=== PATIENT | male | born 1995 | race Caucasian/White ===

== ENCOUNTER 2017-03-09 22:06 | Emergency (ER) | payer OTHER ==
[~2017-03-09] VITALS: Ht 162.6 cm; Wt 138.3 kg
[2017-03-09 22:19] VITALS: BP 129/88
[2017-03-09] MEDS ORDERED: IBUPROFEN 600 MG TABLET. PO ONE (22:30)
[2017-03-09] MEDS ORDERED: OXYM30SP NS (22:31)
--- NOTE | 2017-03-09 22:31 | PHYS DOC ---
Past Medical History Past Medical History: No Pertinent History Past Surgical History: No Surgical History Alcohol Use: None Drug Use: None Adult General Chief Complaint Chief Complaint: NOSEBLEED HPI HPI Patient is a 21 year old male who presents with nosebleed. The patient states he had bleeding from the right nare that resolved prior to arrival. He has several day history of sinus congestion & dull throbbing headache. He has not tried any medications at home. States he often has 1-2 nosebleeds per month. Denies use of blood thinners, no known past medical history. Review of Systems Review of Systems Constitutional: Denies fever or chills Eyes: Denies change in visual acuity HENT: Reports nasal congestion, denies sore throat, reports epistaxis Respiratory: Denies cough or shortness of breath Cardiovascular: Denies chest pain GI: Denies abdominal pain, nausea, vomiting Musculoskeletal: Denies back pain or joint pain Integument: Denies rash Neurologic: Reports headache, denies focal weakness or sensory changes Current Medications Current Medications Current Medications Medications (Trade) Dose Ordered Sig/Erlinda Start Time Stop Time Status Last Admin Dose Admin Ibuprofen (Motrin) 600 mg 1X ONCE 03/09/17 22:30 03/09/17 22:31 DC 03/09/17 22:30 600 MG Allergies Allergies Allergies Coded Allergies Type Severity Reaction Last Updated Verified No Known Drug Allergies 03/09/17 No Physical Exam Physical Exam Constitutional: obese, no acute distress, non-toxic appearance. HENT: Normocephalic, atraumatic, bilateral external ears normal, oropharynx moist, nose normal. dried blood at right nare, no active bleeding, no septal hematoma. no focal sinus tenderness. Eyes: PERRLA, EOMI, conjunctiva normal, no discharge. Neck: supple, no stridor. no meningismus Cardiovascular: RRR, no murmurs, no edema. Lungs & Thorax: LCTAB, no wheezing, no respiratory distress. Abdomen: soft, nontender, nondistended. Skin: Warm, dry, no erythema, no rash. Extremities: No tenderness, no edema. Neurologic: Alert and oriented X 3, CN2-12 grossly intact, symmetric strength/ sensation to UE & LE, no focal deficits noted. Psychologic: Affect normal, judgement normal, mood normal. Current Patient Data Vital Signs Vital Signs Date Time Temp Pulse Resp B/P (MAP) Pulse Ox O2 Delivery O2 Flow Rate FiO2 03/09/17 22:19 98.6 106 16 98 Room Air 98.6 EKG EKG [] Radiology/Procedures Radiology/Procedures [] Course & Med Decision Making Course & Med Decision Making Pertinent Labs and Imaging studies reviewed. (See chart for details) The patient presents with epistaxis now resolved. Counseled regarding prevention (no nose picking, apply neosporin to nares, use humidifier) & treatment (blow nose, pressure x 15 minutes, afrin PRN). Use claritin or zyrtec for possible seasonal allergies. Follow up with PCP, possible ENT referral at that time. Come back for epistaxis not treated by above measures. Discharged home in stable condition. [] Dragon Disclaimer Dragon Disclaimer This electronic medical record was generated, in whole or in part, using a voice recognition dictation system. Departure Departure Impression: Primary Impression: Epistaxis Disposition: HOME, SELF-CARE Condition: STABLE Referrals: UNKNOWN PCP NAME (PCP) Patient Instructions: Nosebleed, [id number] Additional Instructions: You were seen in the emergency department today for nosebleed which had stopped. To prevent nosebleeds in the future, do not pick your nose and consider gently applying neosporin ointment inside her nose with a Q-tip. During the dry winter months sleep with a humidifier. If you do experience nosebleed, apply pressure for 15 minutes as demonstrated here after blowing out clots. Apply Afrin nasal spray as needed. You may also take Tylenol or ibuprofen for pain or fever and use Claritin or Zyrtec to reduce sinus congestion. Follow-up with primary care physician in about one week. You may also benefit from seeing an ear, nose, and throat physician. Scripts Oxymetazoline Hcl (AFRIN) 30 Ml [place] 2 SPRAYS NS 1X Y for nosebleed, #1 UNIT Prov: FELISA EAST MD 03/09/17 FELISA EAST MD Mar 09, 2017 22:31
== END 2017-03-09 22:43 | disposition home or self-care (01) ==
LOC: ER 22:06
DX: R04.0 Epistaxis (principal); R51 Headache; R09.81 Nasal congestion; E66.9 Obesity, unspecified
CPT/HCPCS: 99283

== ENCOUNTER 2017-08-05 08:02 | Emergency (ER) | payer OTHER ==
[~2017-08-05] VITALS: Ht 180.3 cm; Wt 133.8 kg
[~2017-08-05 08:02] MED LIST: OXYM30SP NS
[2017-08-05 08:11] VITALS: BP 147/75
--- NOTE | 2017-08-05 08:21 | PHYS DOC ---
Past Medical History Past Medical History: No Pertinent History Past Surgical History: No Surgical History Alcohol Use: None Drug Use: None Adult General Chief Complaint Chief Complaint: ABDOMINAL PAIN HPI HPI Patient is a 21 year old male with no significant medical history who presents with mild midepigastric to left upper quadrant abdominal pain with nausea vomiting and diarrhea that began 4 days ago. Patient denies any fever or hematemesis or melena. Review of Systems Review of Systems Constitutional: Denies fever or chills [] Eyes: Denies change in visual acuity, redness, or eye pain [] HENT: Denies nasal congestion or sore throat [] Respiratory: Denies cough or shortness of breath [] Cardiovascular: No additional information not addressed in HPI [] GI: Epigastric and left upper abdominal pain, denies nausea, vomiting, bloody stools or diarrhea [] : Denies dysuria or hematuria [] Musculoskeletal: Denies back pain or joint pain [] Integument: Denies rash or skin lesions [] Neurologic: Denies headache, focal weakness or sensory changes [] All other systems were reviewed and found to be within normal limits, except as documented in this note. Current Medications Current Medications Current Medications Medications (Trade) Dose Ordered Sig/Erlinda Start Time Stop Time Status Last Admin Dose Admin Famotidine (Pepcid Vial) 20 mg 1X ONCE 08/05/17 08:30 08/05/17 08:31 DC 08/05/17 08:35 20 MG Ketorolac Tromethamine (Toradol) 30 mg 1X ONCE 08/05/17 08:30 08/05/17 08:31 DC 08/05/17 08:35 30 MG Ondansetron HCl (Zofran) 4 mg 1X ONCE 08/05/17 08:30 08/05/17 08:31 DC 08/05/17 08:35 4 MG Sodium Chloride 1,000 ml @ 1,000 mls/hr 1X ONCE 08/05/17 08:30 08/05/17 09:29 DC 08/05/17 08:35 1,000 MLS/HR Allergies Allergies Allergies Coded Allergies Type Severity Reaction Last Updated Verified No Known Drug Allergies 03/09/17 No Physical Exam Physical Exam Constitutional: Well developed, well nourished, no acute distress, non-toxic appearance. [] HENT: Normocephalic, atraumatic, bilateral external ears normal, oropharynx moist, no oral exudates, nose normal. [] Eyes: PERRLA, EOMI, conjunctiva normal, no discharge. [] Neck: Normal range of motion, no tenderness, supple, no stridor. [] Cardiovascular:Heart rate regular rhythm, no murmur [] Lungs & Thorax: Bilateral breath sounds clear to auscultation [] Abdomen: Bowel sounds normal, soft, no tenderness, no masses, no pulsatile masses. [] Skin: Warm, dry, no erythema, no rash. [] Back: No tenderness, no CVA tenderness. [] Extremities: No tenderness, no cyanosis, no clubbing, ROM intact, no edema. [] Neurologic: Alert and oriented X 3, normal motor function, normal sensory function, no focal deficits noted. [] Psychologic: Affect normal, judgement normal, mood normal. [] Current Patient Data Vital Signs Vital Signs Date Time Temp Pulse Resp B/P (MAP) Pulse Ox O2 Delivery O2 Flow Rate FiO2 08/05/17 08:11 98.1 97 18 147/75 (99) 100 98.1 Lab Values Laboratory Tests Test 08/05/17 08:10 08/05/17 08:34 Urine Collection Type Unknown Urine Color Yellow Urine Clarity Clear Urine pH 6.0 Urine Specific [place] 1.015 Urine Protein Negative mg/dL (NEG-TRACE) Urine Glucose (UA) Negative mg/dL (NEG) Urine Ketones (Stick) Negative mg/dL (NEG) Urine Blood Negative (NEG) Urine Nitrite Negative (NEG) Urine Bilirubin Negative (NEG) Urine Urobilinogen Dipstick 0.2 mg/dL (0.2 mg/dL) Urine Leukocyte Esterase Negative (NEG) Urine RBC 0 /HPF (0-2) Urine WBC Occ /HPF (0-4) Urine Bacteria Few /HPF (0-FEW) Urine Mucus Marked /LPF Urine Opiates Screen Neg (NEG) Urine Methadone Screen Neg (NEG) Urine Barbiturates Neg (NEG) Urine Phencyclidine Screen Neg (NEG) Urine Amphetamine/Methamphetamine Neg (NEG) Urine Benzodiazepines Screen Neg (NEG) Urine Cocaine Screen Neg (NEG) Urine Cannabinoids Screen Neg (NEG) Urine Ethyl Alcohol Neg (NEG) White Blood Count 5.4 x10^3/uL (4.0-11.0) Red Blood Count 5.05 x10^6/uL (4.30-5.70) Hemoglobin 15.1 g/dL (13.0-17.5) Hematocrit 44.0 % (39.0-53.0) Mean Corpuscular Volume 87 fL (79-100) Mean Corpuscular Hemoglobin 30 pg (25-35) Mean Corpuscular Hemoglobin Concent 34 g/dL (31-37) Red Cell Distribution Width 13.1 % (11.5-14.5) Platelet Count 335 x10^3/uL (140-400) Neutrophils (%) (Auto) 59 % (31-73) Lymphocytes (%) (Auto) 24 % (24-48) Monocytes (%) (Auto) 14 % (0-9) H Eosinophils (%) (Auto) 4 % (0-3) H Basophils (%) (Auto) 1 % (0-3) Neutrophils # (Auto) 3.1 x10^3uL (1.8-7.7) Lymphocytes # (Auto) 1.3 x10^3/uL (1.0-4.8) Monocytes # (Auto) 0.7 x10^3/uL (0.0-1.1) Eosinophils # (Auto) 0.2 x10^3/uL (0.0-0.7) Basophils # (Auto) 0.0 x10^3/uL (0.0-0.2) Sodium Level 141 mmol/L (136-145) Potassium Level 4.1 mmol/L (3.5-5.1) Chloride Level 105 mmol/L (98-107) Carbon Dioxide Level 28 mmol/L (21-32) Anion Gap 8 (6-14) Blood Urea Nitrogen 9 mg/dL (8-26) Creatinine 1.0 mg/dL (0.7-1.3) Estimated GFR (Cockcroft-Gault) 95.3 BUN/Creatinine Ratio 9 (6-20) Glucose Level 103 mg/dL (70-99) H Calcium Level 9.0 mg/dL (8.5-10.1) Total Bilirubin 1.0 mg/dL (0.2-1.0) Aspartate Amino Transferase (AST) 30 U/L (15-37) Alanine Aminotransferase (ALT) 62 U/L (16-63) Alkaline Phosphatase 66 U/L (46-116) Total Protein 7.3 g/dL (6.4-8.2) Albumin 4.3 g/dL (3.4-5.0) Albumin/Globulin Ratio 1.4 (1.0-1.7) Lipase 87 U/L (73-393) Ethyl Alcohol Level < 10 mg/dL (0-10) Laboratory Tests 08/05/17 08:34 Laboratory Tests 08/05/17 08:34 EKG EKG [] Radiology/Procedures Radiology/Procedures [] Course & Med Decision Making Course & Med Decision Making Pertinent Labs and Imaging studies reviewed. (See chart for details) This is a 21-year-old male patient presented to the ED today with epigastric and left upper quadrant abdominal pain, nausea and vomiting as well as diarrhea for 4 days. Patient's labs are negative for any acute findings, abdominal ultrasound is negative for any acute findings but noted for for fatty liver. Patient was discharged with Zofran. Instructed to push fluids. Instructed to maintain good hand hygiene. Zofran for nausea. Follow-up with PCP in 1-2 weeks. Provided return precautions and discharged in stable condition. Dragon Disclaimer Dragon Disclaimer This electronic medical record was generated, in whole or in part, using a voice recognition dictation system. Departure Departure Impression: Primary Impression: Nausea & vomiting Additional Impression: Diarrhea Disposition: 01 HOME, SELF-CARE Condition: STABLE Referrals: UNKNOWN PCP NAME (PCP) follow up with your doctor next week Patient Instructions: Diarrhea, [id number], Nausea and Vomiting, [id number] Additional Instructions: You were seen for nausea vomiting and diarrhea. Your lab work was negative for any acute findings. Your ultrasound was also negative for any acute findings. This is likely a viral illness. Push fluids, maintain good hand hygiene. Follow- up with your doctor next week. Come back to the ED if symptoms worsen. Scripts Dicyclomine Hcl (DICYCLOMINE HCL) 20 Mg Tablet 1 TAB PO TID, #20 TAB 1 Refill Prov: GEOFFASUSY CHECK INSPECTOR 08/05/17 Ondansetron (ZOFRAN ODT) 4 Mg Tab.rapdis 1 TAB SL Q8HRS, #15 TAB Prov: MUTUNGASUSY CHECK INSPECTOR 08/05/17 Problem Qualifiers Primary Impression: Nausea & vomiting Vomiting type: unspecified Vomiting Intractability: non-intractable Qualified Codes: R11.2 - Nausea with vomiting, unspecified Additional Impression: Diarrhea Diarrhea type: unspecified type Qualified Codes: R19.7 - Diarrhea, unspecified SUSY JOSHI CHECK INSPECTOR Aug 05, 2017 08:21
[2017-08-05] MEDS ORDERED: IV NORMAL SALINE 1000ML BAG 1,000 ML IV ONE (08:30)
[2017-08-05] MEDS ORDERED: ONDANSETRON PF 4 MG/2 ML VIAL. IV ONE (08:30)
[2017-08-05] MEDS ORDERED: KETOROLAC 30 MG/ML INJ. IV ONE (08:30)
[2017-08-05] MEDS ORDERED: FAMOTIDINE 20 MG/2 ML VIAL IVP ONE (08:30)
[2017-08-05 08:39] LABS: BARBITURATES NEG (NEG); BENZODIAZEPINES NEG (NEG); CANNABINOIDS NEG (NEG); COCAINE NEG (NEG); METHADONE NEG (NEG); OPIATES NEG (NEG); PHENCYCLIDINE NEG (NEG)
[2017-08-05 08:45] LABS: BASO % 1 % (0-3); EOS % 4 % (0-3); HEMOGLOBIN 15.1 g/dL (13.0-17.5); LYMPH # 1.3 x10^3/uL (1.0-4.8); LYMPH % 24 % (24-48); MEAN CORPUSCULAR HEMOGLOBIN 30 pg (25-35); MEAN CORPUSCULAR HGB CONC 34 g/dL (31-37); MEAN CORPUSCULAR VOLUME 87 fL (79-100); MONO % 14 % (0-9); NEUT % 59 % (31-73); PLATELET COUNT 335 x10^3/uL (140-400); RED BLOOD COUNT 5.05 x10^6/uL (4.30-5.70); RED CELL DISTRIBUTION WIDTH 13.1 % (11.5-14.5); WHITE BLOOD COUNT 5.4 x10^3/uL (4.0-11.0)
[2017-08-05 08:48] LABS: BILIRUBIN,URINE NEGATIVE (NEG); GLUCOSE,URINE NEGATIVE (NEG); NITRITE,URINE NEGATIVE (NEG); PROTEIN,URINE NEGATIVE (NEG-TRACE); UROBILINOGEN,URINE 0.2 mg/dL (0.2 mg/dL)
[2017-08-05 08:52] LABS: GFR 95.3; POTASSIUM 4.1 mmol/L (3.5-5.1)
[2017-08-05 08:57] LABS: ALBUMIN 4.3 g/dL (3.4-5.0); ALBUMIN/GLOBULIN RATIO 1.4 (1.0-1.7); TOTAL PROTEIN 7.3 g/dL (6.4-8.2)
[2017-08-05 08:58] LABS: BACTERIA,URINE FEW /HPF (0-FEW); RBC,URINE 0 /HPF (0-2); WBC,URINE OCC /HPF (0-4)
--- NOTE | 2017-08-05 09:15 | RAD ---
ABDOMEN COMPLETE History:Abdominal pain, vomiting Comparison: None Findings:Multiple sonographic images of the abdomen are submitted. There is diffuse coarsening of the echotexture of the liver, some areas of relative hypoechogenicity such as near the gallbladder fossa probably due to focal fatty sparing. Gallbladder is present without intraluminal abnormality, wall thickening, or demonstrable pericholecystic fluid. Right lobe of the liver measured 17.2 cm longitudinal. Right kidney measured 11.5 x 4.8 x 4.6 cm. Left kidney measured 11.4 x 4.7 x 5.3 cm. There is no hydronephrosis of either kidney. There is no abnormality of the visualized pancreas. Abdominal aortic caliber is within normal limits. There is segmental visualization of the inferior vena cava. No free fluid is demonstrated. There is demonstrable flow of the main portal vein. Common bile duct is within normal limits of 0.4 cm. Spleen measured up to 5.2 x 12.9 x 4.8 cm. Impression: 1. There is hepatic steatosis, also focal fatty sparing such as near the gallbladder fossa. No other significant abnormality is demonstrated.
[2017-08-05] MEDS ORDERED: ONDA4TAB10 SL (09:54)
[2017-08-05] MEDS ORDERED: DICY20TA3 PO (09:54)
== END 2017-08-05 10:09 | disposition home or self-care (01) ==
LOC: ER 08:02
DX: R11.2 Nausea with vomiting, unspecified (principal); R19.7 Diarrhea, unspecified; R10.13 Epigastric pain
CPT/HCPCS: 36415; 76700; 80053; 80307; 81001; 83690; 85025; 96361; 96374; 96375; 99285; G0480; J1885; J2405; J7030; S0028; G0479